=== PATIENT | male | born 1995 | race Caucasian/White ===

== ENCOUNTER 2024-02-03 21:34 | Emergency (ER) | payer MEDICAID ==
[~2024-02-03] VITALS: Ht 185.4 cm; Wt 84.1 kg
[2024-02-03 22:27] VITALS: PULSE 77; RESP 14; O2SAT 99
[2024-02-03] MEDS: bacitracin 15gm ointment TP ONE (23:08)
[2024-02-03] MEDS: TETanus/Pertussis (Acell)/Diphther VAC/PF (Tdap-Adult) 0.5ml syringe IMVAC ONE (23:10)
[2024-02-03 23:53] VITALS: BP 116/83; TEMP 98.1
== END 2024-02-03 23:55 | disposition home or self-care (01) ==
LOC: ER 21:35
DX: S61.012A Laceration without foreign body of left thumb without damage to nail, initial encounter (principal); W26.8XXA Contact with other sharp object(s), not elsewhere classified, initial encounter; Y93.89 Activity, other specified; Y92.89 Other specified places as the place of occurrence of the external cause; Y99.8 Other external cause status
CPT/HCPCS: 12002; 90471; 90715; 99283; J7030; A6258; A6449

== ENCOUNTER 2024-08-13 09:36 | Emergency (ER) | payer MEDICAID ==
[~2024-08-13] VITALS: Ht 185.4 cm; Wt 90.9 kg
[2024-08-13 09:44] VITALS: BP 162/108; PULSE 68; O2SAT 97
[2024-08-13] MEDS: ketorolac trometh 30MG/ML vial 30 MG/ML VIAL IM ONE (11:23)
[2024-08-13] MEDS: ketorolac trometh 15mg/ml vial 15 MG/ML ML IM ONE (11:23)
[2024-08-13 11:30] VITALS: RESP 17; TEMP 98.9
== END 2024-08-13 11:33 | disposition home or self-care (01) ==
LOC: ER 09:37
DX: R07.89 Other chest pain (principal); R05.9 Cough, unspecified
CPT/HCPCS: 71046; 93005; 96372; 99283; J1885

== ENCOUNTER 2024-10-09 19:16 | Emergency (ER) | payer MEDICAID ==
[~2024-10-09] VITALS: Ht 185.4 cm; Wt 88.5 kg
[2024-10-09 19:52] VITALS: BP 99/64; TEMP 98.6
[2024-10-09] MEDS: TETanus/Pertussis (Acell)/Diphther VAC/PF (Tdap-Adult) 0.5ml syringe IMVAC ONE (19:55)
--- NOTE | 2024-10-09 19:55 | Physician Documentation ---
History of Present Illness ~ Chief Complaint: Hand pain Stated Complaint: RT HAND PAIN Time Seen by MD: 01:09 HPI Donn is a 29-year-old male who presents today for right hand pain and swelling with abrasions after using a buffer to a car. Last tetanus unknown. Has not ta miller any medications prior to arrival for pain. Dr. Dunne: History as above. All movements intact Tetanus within 5 years: No Medication Reconciliation Allergies: Coded Allergies: No Known Allergies (Unverified , 08/13/24) Past Medical History Past Medical History: No Pertinent History Drug Use: marijuana Review of Systems ROS All review of systems negative except as per HPI Physical Exam Physical Exam General: Patient is awake, alert, oriented x4 in no acute distress and well appearing.~ Head: Normocephalic and atraumatic. Eyes: Conjunctival normal. EOMI. PERRL. ENT: Mucous membranes moist. Neck: Supple, trachea is midline. Chest: Clear to auscultation bilaterally without rales, rhonchi, or wheezes. There is no accessory muscle use or retractions. Cardiac: RRR without murmurs, gallops, or rubs. Abd: Soft, nondistended, nontender, with normoactive bowel sounds. No guarding, rebound, or rigidity. Extremities: Left upper extremity normal, right upper extremity with laceration to the dorsal aspect of his right hand partial-thickness measuring approximately 8 cm and another laceration to the distal part of his right index finger measuring 1 cm. No active bleeding. Associated swelling to hand. Movements intact. Less than 2nd capillary refill. Progress Results/Orders Results/Orders Vital Signs 10/09/24 10/10/24 19:52 01:10 Temp 98.6 Pulse 54 58 Resp 18 15 B/P (MAP) 99/64 Pulse Ox 99 97 O2 Flow Rate 0 Medical Decision Making Findings Patient presents to the emergency room with hand pain as per HPI. Differentials include but are not limited to fractures, dislocations, foreign bodies, soft tissue injury therefore x-ray performed which was reassuring. Patient believes his tetanus is up-to-date and he is declining tetanus shot or even wound care. He says he will go home and wash his wound. ER precautions discussed Departure Disposition: 01 HOME / SELF CARE / HOMELESS Impression: Primary Impression: Hand pain Condition: Stable Discharge Instructions: Laceration Care, Adult Additional Instructions: Go home and wash your wound. Return for signs of infection Referrals: NO PRIMARY CARE PROVIDER (PCP) Education Educated: Patient Educated regarding: treatment, need for follow up Additional Comment Medical Screen Exam This patient recieved a medical screening examination. After reviewing the individual's medical complaints with presenting symptoms and performing an appropriate physical examination, it was determined that no emergency medical condition is present. This individual is also not a women having contractions. Signature Scribe Signature: No scribe Attestation: The note accurately reflects work and decisions made by me.Reid Dunne MD 10/10/24 01:17 LUIS A GIBBS October 09, 2024 19:55 REID DUNNE MD October 10, 2024 01:17
--- NOTE | 2024-10-09 20:39 | RADIOLOGY REPORT ---
CLINICAL INDICATION: HAND PAIN TECHNIQUE: DI HAND, COMPLETE (3VW MIN) Comparison: None FINDINGS: No osseous or joint abnormality identified with no evidence of fracture or dislocation. Joint spaces are normal. IMPRESSION: No abnormality demonstrated.
[2024-10-10 01:10] VITALS: PULSE 58; RESP 15; O2SAT 97
== END 2024-10-10 01:27 | disposition home or self-care (01) ==
LOC: ER 19:17
DX: S61.210A Laceration without foreign body of right index finger without damage to nail, initial encounter (principal); X58.XXXA Exposure to other specified factors, initial encounter; Y93.89 Activity, other specified; Y92.89 Other specified places as the place of occurrence of the external cause; Y99.8 Other external cause status
CPT/HCPCS: 73130; 99283